=== PATIENT | female | born 1960 | race Caucasian/White ===

== ENCOUNTER 2022-01-12 00:51 | Day surgery (SDC) | payer OTHER, SELFPAY ==
[2022-01-03 14:14] VITALS: BMI 24.9
--- NOTE | 2022-01-11 15:02 | PM.HPGS ---
History of Present Illness History of Present Illness Consent: Risks, benefits, and alternatives have been discussed and questions answered. Patient agrees to proceed with procedure. Chief complaint: neoplasm screening Narrative: Erik Howard is a 61 year old female Referred for colon cancer screening. Three years ago she had 2 adenomatous polyps removed Review of Systems Review of Systems: All systems reviewed & are unremarkable except as noted in HPI and below PMFSH Social History Social History Smoking packs per day: 1 Smoking cigarettes per day: 20.0 Years smoked: 10 Smoking pack-years: 10.00 Smoking status: Former smoker Tobacco type: cigarettes Alcohol intake: current Drinks per week: 1 Substance use type: does not use Living arrangements: with family Spiritual care concerns: No Meds Home Medications and Allergies Home Medications Medication Instructions Recorded Confirmed Type apremilast 30 mg tablet (Otezla) 30 mg PO BID 01/03/22 01/03/22 History atorvastatin 40 mg tablet 40 mg PO DAILY 01/03/22 01/03/22 History cetirizine 10 mg capsule 10 mg PO DAILY 01/03/22 01/03/22 History citalopram 20 mg tablet 20 mg PO BID 01/03/22 01/03/22 History lisinopril 20 mg tablet 20 mg PO DAILY 01/03/22 01/03/22 History metformin 500 mg tablet,extended 500 mg PO DAILY 01/03/22 01/03/22 History release 24 hr Allergies Allergy/AdvReac Type Severity Reaction Status Date / Time brimonidine [From Combigan] Allergy Other Verified 01/12/22 09:08 guaifenesin Allergy Rash Verified 01/12/22 09:08 timolol [From Combigan] Allergy Other Verified 01/12/22 09:08 Exam Resp: Auscultation: clear to auscultation bilaterally Cardio: Rate: regular rate Rhythm: regular rhythm GI: GI Palp: Yes Soft to palpation and No Tenderness to palpation present (GI) Assessment and Plan Assessment and plan (1) Colon cancer screening: Code(s): Z12.11 - Encounter for screening for malignant neoplasm of colon Status: Acute Assessment and Plan: Colonoscopy with possible biopsy or polypectomy or cautery or injection of substances.
[2022-01-12 09:10] VITALS: BP 115/55; PULSE 73; RESP 18; TEMP 36.4; O2SAT 100
[2022-01-12] MEDS: LACTATED RINGERS 1,000 ML 150 ML IV CONT (09:23)
--- NOTE | 2022-01-12 10:05 | P.PNAN_ITS ---
Anes - Initial Pre Proc Eval Procedure: Operation Date: 01/12/22 10:15 Proposed Procedures p Screening Colonoscopy - Rafael Oreilly MD Date/Time: 01/12/22 10:05 Surgeon: Rafael Oreilly MD Pre Op Diagnosis: neoplasm screening Patient Data Age: 61 Gender: F Height: 1.65 m Weight: 67.1 kg Last Vital Signs Temp 97.6 F 01/12/22 09:10 Pulse 73 01/12/22 09:10 Resp 18 01/12/22 09:10 BP 115/55 L 01/12/22 09:10 Pulse Ox 100 01/12/22 09:10 O2 Del Method Room Air 01/12/22 09:10 Allergies Allergy/AdvReac Type Severity Reaction Status Date / Time brimonidine [From Combigan] Allergy Other Verified 01/12/22 09:08 guaifenesin Allergy Rash Verified 01/12/22 09:08 timolol [From Combigan] Allergy Other Verified 01/12/22 09:08 Home Medications Medication Instructions Recorded Confirmed Type apremilast 30 mg tablet (Otezla) 30 mg PO BID 01/03/22 01/03/22 History atorvastatin 40 mg tablet 40 mg PO DAILY 01/03/22 01/03/22 History cetirizine 10 mg capsule 10 mg PO DAILY 01/03/22 01/03/22 History citalopram 20 mg tablet 20 mg PO BID 01/03/22 01/03/22 History lisinopril 20 mg tablet 20 mg PO DAILY 01/03/22 01/03/22 History metformin 500 mg tablet,extended 500 mg PO DAILY 01/03/22 01/03/22 History release 24 hr Patient hx anesthesia problems: none Family hx anesthesia problems: none Results Review: All pre-operative results and documents have been reviewed as part of the pre- operative evaluation. REPLACED BY [facility] Social History Social History Smoking packs per day: 1 Smoking cigarettes per day: 20.0 Years smoked: 10 Smoking pack-years: 10.00 Smoking status: Former smoker Tobacco type: cigarettes Alcohol intake: current Drinks per week: 1 Substance use type: does not use Living arrangements: with family Spiritual care concerns: No Anes - Eval Final PreProcedure Day of Procedure 01/12/22 10:05 Patient weight: normal Heart: regular rate and rhythm Lungs: clear to auscultation Airway: Mallampati scale class II Neurological: alert and oriented Last oral intake: >/= 8 hours ASA classification: III Emergent: no Anesthetic plan: proceed Anesthesia type and monitoring: general GIVS and standard monitoring Results Review: All pre-operative results and documents have been reviewed as part of the pre- operative evaluation. Informed Consent: The patient's anesthetic plan and its attendant risks and benefits were discussed with the patient/family/POA. Questions were solicited and answers provided to the satisfaction of the patient/family/POA.
[2022-01-12 10:26] VITALS: BP 98/64; PULSE 61; RESP 16; O2SAT 99
[2022-01-12 10:36] VITALS: BP 107/69; PULSE 61; RESP 18; O2SAT 100
[2022-01-12 10:46] VITALS: BP 112/67; PULSE 58; RESP 18; O2SAT 100
== END 2022-01-12 10:50 | disposition home or self-care (01) ==
PROVIDERS: PCP Internal Medicine; Visit Provider Internal Medicine Gastroenterology
PROC: 0DJD8ZZ Inspection of Lower Intestinal Tract, Via Natural or Artificial Opening Endoscopic (ICD-10-PCS; CPT 45378; principal; 2022-01-12 10:15)
DX: Z12.11 Encounter for screening for malignant neoplasm of colon (principal); K64.8 Other hemorrhoids; K62.1 Rectal polyp; Z87.891 Personal history of nicotine dependence; Z79.84 Long term (current) use of oral hypoglycemic drugs
CPT/HCPCS: 45380; 88305; J2704; J7120